=== PATIENT | female | born 2005 | race African-American/Black ===

== ENCOUNTER 2023-05-13 18:26 | Emergency (ER) | payer MEDICAID ==
[~2023-05-13] VITALS: Ht 172.7 cm; Wt 101.0 kg
[2023-05-13 18:58] VITALS: BP 149/89; PULSE 90; RESP 17; TEMP 98.9; O2SAT 99
[2023-05-14] MEDS ORDERED: ACET325T52 MT (00:56)
== END 2023-05-14 03:00 | disposition home or self-care (01) ==
LOC: ER 20:33
DX: R04.0 Epistaxis (principal)
CPT/HCPCS: 99282